=== PATIENT | male | born 1955 | race Caucasian/White ===

== ENCOUNTER 2022-11-12 19:21 | Inpatient (IN) | payer MEDICARE, MEDICAID ==
[~2022-11-12] VITALS: Ht 185.4 cm; Wt 84.8 kg
[2022-11-12] MEDS ORDERED: OXYCODONE HCL/ACETAMINOPHEN 5/325MG TABLET PO ONE (21:00)
[2022-11-12] MEDS ORDERED: LIDOCAINE HCL 1% 20ML VIAL (Pyxis) INJ INFIL ONE (21:00)
[2022-11-12] MEDS ORDERED: TETANUS, DIPHTHERIA, PERTUSSIS VAC/PF 0.5ML (>10YR OLD) IM ONE (21:45)
[2022-11-12] MEDS ORDERED: FENTANYL CITRATE/PF 50MCG/ML 2ML VIAL IM ONE (21:45)
[2022-11-13 00:48] LABS: BASOPHILS % 0.2 % (0.0-2.0); HEMATOCRIT. 39.1 % (42.0-52.0); HEMOGLOBIN. 13.3 g/dL (14.0-18.0); LYMPHOCYTES % 11.4 % (20.0-50.0); MEAN CORPUSCULAR HEMOGLOBIN 29.9 pg (28.0-32.0); MEAN CORPUSCULAR VOLUME 88.1 fL (80.0-94.0); MONOCYTES % 7.1 % (2.0-8.0); NEUTROPHILS % 80.3 % (40.0-76.0); PLATELET 259 x1000/uL (130-400); RED BLOOD CELL COUNT 4.44 mill/uL (4.7-6.1); RED CELL DISTRIBUTION WIDTH 13.7 % (11.6-14.6)
[2022-11-13 01:08] LABS: CHLORIDE 99 mEq/L (98-107)
[2022-11-13 12:00] VITALS: BP 126/83
[2022-11-13] MEDS ORDERED: IPRATROPIUM/ALBUTEROL 0.5-3(2.5)MG/3ML NEB HHN PRN (12:45)
[2022-11-13] MEDS ORDERED: DOCUSATE SODIUM 100MG CAPSULE PO PRN (12:45)
[2022-11-13] MEDS ORDERED: ONDANSETRON HCL 4MG/2ML INJ IV PRN (12:45)
[2022-11-13] MEDS ORDERED: LORAZEPAM 0.5MG TABLET PO PRN (12:45)
[2022-11-13] MEDS ORDERED: CLONIDINE 0.1MG TABLET PO PRN (12:45)
[2022-11-13] MEDS ORDERED: IPRATROPIUM BROMIDE (0.02%) 0.5MG/2.5ML NEB HHN PRN (12:45)
[2022-11-13] MEDS ORDERED: ALBUTEROL (0.083%) 2.5MG/3ML NEB HHN PRN (12:45)
[2022-11-13] MEDS ORDERED: ACETAMINOPHEN 325MG TABLET PO PRN ×2 (12:45)
[2022-11-13] MEDS ORDERED: NALOXONE HCL 0.4MG/ML VIAL IV PRN (13:00)
[2022-11-13] MEDS ORDERED: LURA120T MT (13:34)
[2022-11-13] MEDS ORDERED: QUET300T20 PO (13:34)
[2022-11-13] MEDS ORDERED: GABA-532 PO (13:34)
[2022-11-13] MEDS ORDERED: ATOR20TA65 PO (13:34)
[2022-11-13] MEDS ORDERED: TRAZ300T11 PO (13:34)
[2022-11-13] MEDS ORDERED: ZOLP3.5T4 SL (13:34)
[2022-11-13] MEDS ORDERED: [UNRECOGNIZED DRUG - CODE] (13:35)
[2022-11-13] MEDS: HYDROCODONE/ACETAMINOPHEN 5/325MG TABLET PO PRN (14:11)
[2022-11-13 16:00] VITALS: BP 124/76
[2022-11-13 17:00] LABS: PROTHROMBIN TIME 10.6 sec (9.6-11.0)
[2022-11-13] MEDS ORDERED: NON FORMULARY PATIENT HOME MED XX SCH (17:00)
[2022-11-13 20:00] VITALS: BP 124/79
[2022-11-13] MEDS: TRAZODONE HCL 50MG TABLET PO SCH (20:29)
[2022-11-13] MEDS: ATORVASTATIN CALCIUM 20MG TABLET PO SCH (20:29)
[2022-11-13] MEDS: QUETIAPINE FUMARATE 200MG TABLET PO SCH (20:29)
[2022-11-13] MEDS ORDERED: ZOLPIDEM TARTRATE 5MG TABLET PO PRN (21:00)
[2022-11-13] MEDS: GABAPENTIN 300MG CAPSULE PO SCH (22:10)
[2022-11-14] VITALS: BP 123/69
[2022-11-14] MEDS: SODIUM CHLORIDE 0.9% 1,000 ML IV SCH (01:15)
[2022-11-14 04:00] VITALS: BP 145/73
[2022-11-14] MEDS: GABAPENTIN 300MG CAPSULE PO SCH ×3 (05:19→22:21)
[2022-11-14 07:12] LABS: BASOPHILS % 0.4 % (0.0-2.0); EOSINOPHILS % 1.3 % (0.0-5.0); HEMATOCRIT. 37.5 % (42.0-52.0); HEMOGLOBIN. 12.8 g/dL (14.0-18.0); LYMPHOCYTES % 12.7 % (20.0-50.0); MEAN CORPUSCULAR VOLUME 87.8 fL (80.0-94.0); MEAN PLATELET VOLUME 8.2 fl (7.4-10.4); MONOCYTES % 11.6 % (2.0-8.0); PLATELET 215 x1000/uL (130-400); RED BLOOD CELL COUNT 4.27 mill/uL (4.7-6.1); RED CELL DISTRIBUTION WIDTH 13.8 % (11.6-14.6)
[2022-11-14 08:00] VITALS: BP 124/78
[2022-11-14 08:05] LABS: CHLORIDE 108 mEq/L (98-107)
[2022-11-14 12:00] VITALS: BP 133/68
[2022-11-14] MEDS ORDERED: BACITRACIN 15GM TUBE TOP ONE (12:59)
[2022-11-14] MEDS ORDERED: LIDOCAINE HCL 1% 20ML VIAL (Pyxis) INJ ONE (12:59)
[2022-11-14] MEDS ORDERED: POLYMYXIN B SULFATE 500000 UNITS/VIAL ONE (12:59)
[2022-11-14] MEDS ORDERED: LIDOCAINE HCL 1%/EPI 1:200,000 30 ML VIAL ONE (13:00)
[2022-11-14] MEDS ORDERED: BUPIVACAINE HCL/PF 0.5% (5MG/ML) 10ML ONE (13:00)
[2022-11-14] MEDS ORDERED: CEFAZOLIN SODIUM 1000MG/VIAL ONE (14:00)
[2022-11-14] MEDS ORDERED: DEXAMETHASONE 4MG/ML 1ML VIAL ONE (14:00)
[2022-11-14] MEDS ORDERED: PROPOFOL 200MG/20ML VIAL IV ONE (14:00)
[2022-11-14] MEDS ORDERED: ONDANSETRON HCL 4MG/2ML INJ ONE (14:00)
[2022-11-14] MEDS ORDERED: LIDOCAINE HCL 1% 10 MG/ML 10ML VIAL ONE (14:00)
[2022-11-14] MEDS ORDERED: MIDAZOLAM HCL 2 MG/2 ML VIAL ONE (14:01)
[2022-11-14] MEDS ORDERED: FENTANYL CITRATE/PF 50MCG/ML 2ML VIAL ONE (14:01)
[2022-11-14] MEDS ORDERED: HYDROMORPHONE HCL/PF 2MG/ML CPJ IV PRN (14:45)
[2022-11-14] MEDS ORDERED: MEPERIDINE HCL/PF 25MG/ML CPJ IV PRN (14:45)
[2022-11-14] MEDS ORDERED: LABETALOL 5MG/ML SYR 20 MG/4 ML SYRINGE IV PRN (14:45)
[2022-11-14] MEDS ORDERED: ONDANSETRON HCL 4MG/2ML INJ IV PRN (14:45)
[2022-11-14] MEDS ORDERED: VANCOMYCIN HCL 1 GM/VIAL ONE (14:59)
[2022-11-14] MEDS ORDERED: LABETALOL HCL 5MG/ML VIAL 20ML IV ONE (15:09)
[2022-11-14] MEDS ORDERED: THROMBIN (BOVINE) 5000 UNITS/VIAL TOP ONE (15:47)
[2022-11-14] MEDS ORDERED: HYDROMORPHONE HCL/PF 2MG/ML CPJ ONE (15:57)
[2022-11-14 20:00] VITALS: BP 140/81
[2022-11-14] MEDS: QUETIAPINE FUMARATE 200MG TABLET PO SCH (20:11)
[2022-11-14] MEDS: TRAZODONE HCL 50MG TABLET PO SCH (20:11)
[2022-11-14] MEDS: ATORVASTATIN CALCIUM 20MG TABLET PO SCH (20:11)
[2022-11-14] MEDS: MORPHINE SULFATE 2 MG/ML CPJ (NOT FOR IM USE) IV PRN (20:24)
[2022-11-14] MEDS: CEFAZOLIN 2,000 MG in DEXT 5% WATER 100 ML IV SCH (22:21)
[2022-11-14] MEDS ORDERED: HYDRALAZINE 10 MG in SODIUM CHLORIDE 0.9% 49.5 ML IV PRN (23:45)
[2022-11-14] MEDS ORDERED: HYDRALAZINE 20MG/ML VIAL IV PRN (23:45)
[2022-11-15] VITALS: BP 137/71
[2022-11-15] MEDS: SODIUM CHLORIDE 0.9% 1,000 ML IV SCH ×3 (02:22→21:11)
[2022-11-15 04:00] VITALS: BP 139/80
[2022-11-15] MEDS: GABAPENTIN 300MG CAPSULE PO SCH ×3 (05:37→21:06)
[2022-11-15] MEDS: CEFAZOLIN 2,000 MG in DEXT 5% WATER 100 ML IV SCH ×3 (05:37→21:09)
[2022-11-15 08:00] VITALS: BP 145/78
[2022-11-15] MEDS: AMLODIPINE 10MG TABLET PO SCH (09:28)
[2022-11-15] MEDS: MORPHINE SULFATE 2 MG/ML CPJ (NOT FOR IM USE) IV PRN (10:21)
[2022-11-15 12:00] VITALS: BP 144/76
[2022-11-15 16:00] VITALS: BP 124/72
[2022-11-15 20:00] VITALS: BP 140/69
[2022-11-15] MEDS: ATORVASTATIN CALCIUM 20MG TABLET PO SCH (21:03)
[2022-11-15] MEDS: TRAZODONE HCL 50MG TABLET PO SCH (21:05)
[2022-11-15] MEDS: QUETIAPINE FUMARATE 200MG TABLET PO SCH (21:07)
[2022-11-16] VITALS: BP 133/60
[2022-11-16 04:00] VITALS: BP 136/64
[2022-11-16] MEDS: CEFAZOLIN 2,000 MG in DEXT 5% WATER 100 ML IV SCH (05:45)
[2022-11-16] MEDS: GABAPENTIN 300MG CAPSULE PO SCH (05:45)
[2022-11-16 08:00] VITALS: BP 140/80
[2022-11-16] MEDS: AMLODIPINE 10MG TABLET PO SCH (10:17)
[2022-11-16] MEDS: HYDROCODONE/ACETAMINOPHEN 5/325MG TABLET PO PRN (10:25)
[2022-11-16 11:52] VITALS: BP 132/70
[2022-11-16 12:00] VITALS: BP 123/76
== END 2022-11-16 14:50 | DRG 511 ==
LOC: ER 19:21 → 6EST 11-13 01:25
PROVIDERS: ADMIT Internal Medicine; ATTEND Internal Medicine
PROC: 0PSJ04Z Reposition Left Radius with Internal Fixation Device, Open Approach (ICD-10-PCS; principal; 2022-11-14)
PROC: 0PSH04Z Reposition Right Radius with Internal Fixation Device, Open Approach (ICD-10-PCS; 2022-11-14)
DX: S52.571A Other intraarticular fracture of lower end of right radius, initial encounter for closed fracture (principal); S52.572A Other intraarticular fracture of lower end of left radius, initial encounter for closed fracture; S52.612A Displaced fracture of left ulna styloid process, initial encounter for closed fracture; D72.829 Elevated white blood cell count, unspecified; Z20.822 Contact with and (suspected) exposure to COVID-19; E78.5 Hyperlipidemia, unspecified; R74.01 Elevation of levels of liver transaminase levels; I16.0 Hypertensive urgency; G89.29 Other chronic pain; Z79.899 Other long term (current) drug therapy; V03.10XA Pedestrian on foot injured in collision with car, pick-up truck or van in traffic accident, initial encounter; Y93.89 Activity, other specified; Y99.8 Other external cause status; Y92.89 Other specified places as the place of occurrence of the external cause
CPT/HCPCS: 36415; 71045; 73110; 76000; 80048; 80053; 80076; 84484; 85025; 86850; 86900; 87426; 90715; 93306; 93970; 97110; 97162; 97166; 99285; C1893; C9803; J0690; J1100; J1170; J2250; J2270; J2405; J2704; J3010; J3370; J3490; J7030; J7060; C1713